=== PATIENT | female | born 1960 | race Caucasian/White ===

== ENCOUNTER 2017-03-04 14:51 | Emergency (ER) | payer OTHER ==
--- NOTE | 2017-03-09 08:48 | ER ---
ADMIT: 03/04/2017 RM/LOC: ER [facility] MR#: [id number] [address] [facility] [address] [place], [place] [id number] [place] [facility] [address] [place] [id number] Emergency Room Report SEX: F AGE: 56 : 1960 DATE: 03/04/2017 CHIEF COMPLAINT: Abdominal pain. HISTORY OF PRESENT ILLNESS: This is a 56-year-old female, who presents with 3 hours duration of severe right-sided abdominal pain. States she has a known ventral hernia, very large in size. She has had this most of her life. She typically has some off and on pain, but has never had anything this severe. Denies any fevers, chills, nausea, vomiting, diarrhea, chest pain, or back pain. She does say she has a loss of appetite. Worse with movement, relieved by nothing at this point. She was in to see Dr. Serenity Ryder couple of weeks ago, was referred onto [facility] for evaluation and possible surgical fixation. States she has not heard back on the details of this appointment. Does state she was lifting some of her grandchildren today, wonders if this did not exacerbate her pain. She did take Tylenol prior to arrival. COURSE IN THE EMERGENCY ROOM: The patient was examined. She is afebrile and nontoxic. No acute distress. She initially states her pain is mildly improving, now rating as a 5 to 6/10. She is alert, in no acute distress. Physical exam is significant for large ventral hernia, currently spanning the right upper and lower quadrants, it is soft to the touch and mildly tender. No McBurney's point tenderness. Bowel sounds are auscultated in all four quadrants. Physical exam is otherwise unremarkable. Ultrasound reveals 15 to 20 cm hernia peristalsing bowel is seen and no fluid or secondary signs of incarceration. I did give her 50 mg of Tylenol and Zofran 4 mg prior to discharge. IMPRESSION: 1. Large ventral hernia. 2. Abdominal pain. DISPOSITION: The patient was discharged to follow up with the surgery group. She does need to call to make this appointment. I did discuss the case with Dr. Serenity Ryder who states the referral was sent over there. If she continues to have pain, she is to follow up with primary care provider. Tylenol and Motrin as needed for pain. Activity as tolerated. Continue home medications. Certainly return with any worsening signs or symptoms. Questions sought and answered to the best of the patient's satisfaction. Discharged in stable condition. CARINA Gonzalez / Yahir Gonzalez MD / ras JOB #: [id number] CC: Yahir Gonzalez MD, Attending Physician ADMIT: 03/04/2017 RM/LOC: [facility] MR#: [id number] [address] [place] [id number] [place] [address] [address] Emergency Room Report SEX: F AGE: 56 : 1960 Serenity Ryder, Family Physician
== END 2017-03-04 16:43 | disposition home or self-care (01) ==
LOC: ER 14:51
DX: K43.9 Ventral hernia without obstruction or gangrene (principal); R10.31 Right lower quadrant pain; I10 Essential (primary) hypertension; Z79.899 Other long term (current) drug therapy